=== PATIENT | female | born 1970 | race Two or more races ===

== ENCOUNTER 2024-05-04 16:54 | Emergency (ER) | payer SELFPAY ==
[2024-05-04 16:58] VITALS: BP 172/109; PULSE 88; RESP 19; TEMP 36.8; O2SAT 99; BMI 50.9
--- NOTE | 2024-05-04 17:56 | XR_ITS ---
Examination: Bilateral wrists 4 views Technique: AP lateral right and left wrist total 4 views Exam date and time: May 04, 2024 1848 hrs. Indications: Patient fell at work today with injury to both wrists, bilateral wrist pain Findings: No fracture or dislocation involving either wrist No opaque foreign bodies Impression: No fracture or dislocation involving either wrist
--- NOTE | 2024-05-04 17:56 | XR_ITS ---
Examination: Ankle Bilateral, 4 views AP lateral right and left ankles total 4 views Date and time of exam: May 04, 2024 1822 hrs. Indications: Patient fell at work today with injury to the right and left ankle, bilateral ankle pain. Findings: No fracture or dislocation involving either ankle Bilateral large plantar posterior bony calcaneal spurs Impression: No fracture or dislocation involving either ankle
--- NOTE | 2024-05-04 17:56 | XR_ITS ---
Examination: Knee bilateral, 6 views Technique: Knee AP, lateral, oblique, each knee total 6 views Date and time of exam: May 04, 2024 1822 hrs. Indications: Patient fell today with injury to both knees, bilateral knee pain. Findings: No fracture or dislocation involving either knee Bilateral moderate to advanced tricompartment osteoarthritis No opaque foreign bodies Impression: No fracture or dislocation involving either knee
--- NOTE | 2024-05-04 17:56 | XR_ITS ---
Examination: Lumbar spine 3 views Technique one AP lateral coned lateral lower lumbar spine 3 views Exam date and time: May 04, 2024 1830 hrs. Indications: Patient fell at work today with injury to lower back, lower back pain. Findings: Lumbar levoscoliosis 10 degrees No lumbar fracture Diffuse advanced lumbar degenerative disc disease No spondylolisthesis Impression: No acute lumbar fracture
--- NOTE | 2024-05-04 17:56 | XR_ITS ---
Examination: Cervical spine 3 views Technique one AP lateral coned AP odontoid cervical spine 3 views Exam date and time: May 04, 2024 1825 hrs. Indications: Patient fell at work today with injury to the neck, neck pain Findings: Adequate alignment cervical vertebral bodies No cervical fracture Intact odontoid Advanced degenerative disc disease C4-C5, C5-C6 with significant posterior osteophyte formation at these levels Impression: No acute cervical fracture
--- NOTE | 2024-05-04 17:56 | XR_ITS ---
Examination: Thoracic spine 3 views Technique: AP lateral coned lateral upper dorsal spine thoracic spine 3 views Exam date and time: May 04, 2024 1830 hrs. Indications: Patient fell at work today with injury to the mid back mid back pain Findings: No acute thoracic fracture Mild to moderate diffuse thoracic degenerative disc disease Moderate thoracic spondylosis Advanced degenerative disc disease C5-C6 with significant posterior osteophyte formation Impression: No acute thoracic fracture
--- NOTE | 2024-05-04 17:59 | EDNOTE_ITS ---
ED Fall Injury RME/HPI General Chief Complaint: Fall Stated Complaint: all over body pain s/p fall at work Time Seen by Provider: 05/04/24 17:22 Arrival date/time: 05/04/24 16:54 Limitations: no limitations RME / HPI RME / HPI Narrative: 53-year-old female presents for evaluation of diffuse pain following a slip and fall that occurred at work today x 2 hours ago. She endorses bilateral knee pain, ankle pain, left wrist pain. She endorses hitting her head but denies loss of consciousness. Denies weakness, tingling, numbness, visual changes. Patient has not taken pain medication prior to arrival to the ED. Denies additional injuries. Related Data Home Medications ?Medication ?Instructions ?Recorded ?Confirmed atorvastatin 40 mg tablet 40 mg PO DAILY 06/05/23 12/13/23 lisinopril 10 mg tablet 10 mg PO DAILY 06/05/23 12/13/23 amlodipine 5 mg tablet 5 mg PO QDAY 12/13/23 12/13/23 Previous Rx's ?Medication ?Instructions ?Recorded cyclobenzaprine 10 mg tablet 10 mg PO TID PRN muscle spasm #30 05/04/24 tabs Allergies Allergy/AdvReac Type Severity Reaction Status Date / Time almond Allergy Intermediate Rash Verified 05/04/24 16:55 mushroom Allergy Intermediate Rash Verified 05/04/24 16:55 shrimp Allergy Intermediate Rash Verified 05/04/24 16:55 hydromorphone [From Dilaudid] Allergy Hypotension Verified 05/04/24 16:55 Review of Systems Constitutional Constitutional: Denies frequent falls, Denies headache(s) and Denies weakness Eyes Eyes: Denies blind spots, Denies blurry vision and Denies change in vision ENT Ears, Nose, Mouth, and Throat: Denies dizziness, Denies ear discharge, Denies epistaxis, Denies headache(s) and Reports neck pain Cardiovascular Cardiovascular: Denies chest pain and Denies dyspnea Respiratory Respiratory: Denies cough, Denies dyspnea and Denies wheezing Gastrointestinal Gastrointestinal: Denies abdominal pain, Denies nausea and Denies vomiting Genitourinary Genitourinary: Denies hematuria Musculoskeletal Musculoskeletal: Reports back pain, Denies joint swelling, Reports limited range of motion (Bilateral wrist, bilateral knees, bilateral ankles.), Reports neck pain and Denies tingling Neurologic Neurologic: Denies dizziness, Denies frequent falls, Denies headache(s), Denies tingling and Denies weakness Allergic/Immunologic Allergic/Immunologic: Denies wheezing Past Medical History Past Medical History CARDIAC: Positive Hypercholesterolemia and Hypertension; Negative Congestive Heart Failure RESPIRATORY: Positive Asthma; Negative Chronic Obstructive Pulmonary Disease (COPD) GENITOURINARY: Negative Renal Disease REPRODUCTIVE: Positive Previous Pregnancies ENDOCRINE: Negative Diabetes Mellitus Type 1 or Diabetes Mellitus Type 2 PSYCHO/SOCIAL: Positive Anxiety OTHER HISTORY: Negative Autoimmune Disease Surgical History SURGICAL: Positive Hysterectomy; Negative Cardiac Surgery or Abdominal Surgery Social History SMOKING STATUS: Never smoker ED Exam General Limitations: Present no limitations General appearance: Present alert and in no apparent distress Head Head exam: Present atraumatic and normocephalic Expanded Head Exam Head exam physical: Absent hematoma Eye Eye exam: Present normal appearance, PERRL and EOMI; Absent nystagmus ENT ENT exam: Present normal exam, normal oropharynx, mucous membranes moist and TM's normal bilaterally Expanded ENT Exam External ear exam: Absent auricular hematoma Neck Neck exam: Present normal inspection and full ROM; Absent tenderness Chest Chest inspection: Present normal inspection and symmetric chest wall rise Respiratory Respiratory exam: Present normal lung sounds bilaterally; Absent respiratory distress or wheezes Cardiovascular Cardiovascular exam: Present regular rate, +S1 and +S2 Abdominal Exam Abdominal exam: Present soft; Absent distention Extremities Exam Extremities exam: Present normal inspection, full ROM and normal capillary refill; Absent tenderness or joint swelling Back Exam Back exam: Present paraspinal tenderness; Absent vertebral tenderness, sciatic notch tenderness (R) or sciatic notch tenderness (L) Neurological Exam Neurological exam: Present alert and normal gait Psychiatric Psychiatric exam: Present normal affect Skin Skin exam: Present warm, dry and intact Course Quality Measures none Orders Category Date Time Status XR ankle BI min 2V Stat Exams 05/04/24 17:56 Completed XR cervical spine 2-3V Stat Exams 05/04/24 17:56 Completed XR knee BI 3V Stat Exams 05/04/24 17:56 Completed XR lumbar spine 2-3V Stat Exams 05/04/24 17:56 Completed XR thoracic spine 3V Stat Exams 05/04/24 17:56 Completed XR wrist BI 2V Stat Exams 05/04/24 17:56 Completed CYCLObenzaPRINE [Flexeril] Med 05/04/24 19:53 Discontinued 5 mg PO X1 ONE Ketorolac Inj [Toradol Inj] Med 05/04/24 17:56 Discontinued 30 mg IM X1 ONE Vital Signs Vital signs: Vital Signs Temperature 98.3 F 05/04/24 16:58 Pulse Rate 88 05/04/24 16:58 Respiratory Rate 19 05/04/24 16:58 Blood Pressure 172/109 H 05/04/24 16:58 Pulse Oximetry (%) 99 05/04/24 16:58 Oxygen Delivery Method Room Air 05/04/24 16:58 Pulse ox 9 9% on room air, within normal limits. Fall MDM Narrative MDM Narrative:: 53-year-old female present to for evaluation of diffuse bodyaches following a slip and fall at work today. Patient endorses hitting her head but did not lose consciousness. Denied visual changes. No focal neurodeficits on examination. Vital signs reassuring. No gross deformities on examination but given the severity of her fall x-rays were obtained of her neck, thoracic spine, lumbar spine, bilateral knees, bilateral ankles, bilateral wrist. Fortunately x-rays today were negative for acute fracture and dislocations. Patient was given Toradol in the department which improved her pain. Patient was discharged with short course of antispasmodics and plan to follow-up with her primary care on Saturday. Workers comp forms filled out and provided to patient pending return to work until cleared by physician. Patient was stable at time of discharge. Patient data External records reviewed:: [facility] previous records Clinical information provided by:: patient and other (specify) (Colleague.) Social determinants that could affect healthcare access:: none Patient has the following chronic illnesses:: Hypertension, hyperlipidemia. How is presenting disease/condition affected by chronic disease/condition?: uneffected by Evaluation data The following diagnostics were reviewed and interpreted by me:: radiology exam(s) Lab and/or radiology exams considered but not ordered:: Considered not ordered. Interpretation Summary: No acute fractures or dislocations on x-ray today. Medications / Prescriptions Medications or Prescriptions considered but not ordered:: Rx given. Medication administrations:: Medication Administration History Discontinued Medications Cyclobenzaprine HCl (Cyclobenzaprine 5 Mg Tablet) 5 mg PO X1 ONE Stop: 05/04/24 19:54 Last Admin: 05/04/24 20:01 Dose: 5 mg Documented By: OA Ketorolac Tromethamine (Ketorolac Inj 60 Mg/2 Ml Vial) 30 mg IM X1 ONE Stop: 05/04/24 17:57 Last Admin: 05/04/24 18:08 Dose: 30 mg Documented By: LP Rx given. Consultations Consultation(s) initiated? (list below): No Diagnosis Fall Differential Diagnosis: fracture of wrist, compression fracture and other (Vertebral body fracture, muscle spasm. ) Most likely diagnosis given after review of the tests above:: Muscle spasm. Admission Indicated Admission indicated?: not indicated Admission Request Was there a request for admission?: No Disposition Plan Disposition Plan: Discharge Discharge Attestation Discharge Attestation: The patient and all family members were given an opportunity to ask questions and understood the discharge instructions. Discharge instructions specifically effects, indications for sooner follow up or return to the emergency department, and the expected course of current diagnosis. Patient condition: Stable Discharge Plan Plan Patient Disposition: HOME (Self Care) Disposition Comment: stable Prescriptions/Referrals Prescriptions/Med Rec: New cyclobenzaprine 10 mg tablet 10 mg PO TID PRN (Reason: muscle spasm) Qty: 30 0RF No Action atorvastatin 40 mg tablet 40 mg PO DAILY Patient Comments: TAKE ONE TABLET BY MOUTH EVERY DAY lisinopril 10 mg tablet 10 mg PO DAILY Hold Instructions: untill follow up with PCP Patient Comments: TAKE ONE TABLET BY MOUTH EVERY DAY FOR BLOOD PRESSURE amlodipine 5 mg tablet 5 mg PO QDAY Patient Comments: TAKE ONE TABLET BY MOUTH EVERY DAY FOR BLOOD PRESSURE Referrals: Matias Prado [Primary Care Provider] - In 1 week Problem List Clinical Impression: Back pain, Fall, Bilateral knee pain, Bilateral ankle pain, Bilateral wrist pain Patient/Caregiver Discharge Instructions Other Activity Instructions:: Follow-up with primary care as discussed on Saturday. Do not return to work until cleared by physician. Take Tylenol or ibuprofen as needed for pain. Return to the ED if your symptoms worsen or change. Print Language: Colombian Stand Alone Forms: [employer] Award Info., Patient Portal Info Letter
[2024-05-04] MEDS: KETOROLAC INJ 60 MG/2 ML VIAL 30 MG IM (18:08)
[2024-05-04] MEDS: CYCLObenzaPRINE 5 MG TABLET PO (20:01)
== END 2024-05-04 20:10 | disposition home or self-care (01) ==
PROVIDERS: Emergency Provider Emergency Medicine
DX: S29.9XXA Unspecified injury of thorax, initial encounter (principal); S19.9XXA Unspecified injury of neck, initial encounter; S39.92XA Unspecified injury of lower back, initial encounter; S89.92XA Unspecified injury of left lower leg, initial encounter; S89.91XA Unspecified injury of right lower leg, initial encounter; S99.912A Unspecified injury of left ankle, initial encounter; S99.911A Unspecified injury of right ankle, initial encounter; S69.92XA Unspecified injury of left wrist, hand and finger(s), initial encounter; S69.91XA Unspecified injury of right wrist, hand and finger(s), initial encounter; W01.0XXA Fall on same level from slipping, tripping and stumbling without subsequent striking against object, initial encounter; Y99.0 Civilian activity done for income or pay
CPT/HCPCS: 72040; 72072; 72100; 73100; 73562; 73600; 96372; 99283; J1885; A9270